=== PATIENT | female | born 1985 | race Caucasian/White ===

== ENCOUNTER 2016-04-19 13:20 | Emergency (ER) | payer MEDICAID ==
[~2016-04-19] VITALS: Ht 152.4 cm; Wt 87.0 kg
[~2016-04-19 13:20] MED LIST: CALC600T5 PO; FERR240T9 PO; IBUP-1542 PO; PRENAT PO
[2016-04-19 13:44] VITALS: Ht 152.4 cm; Wt 87.0 kg
[2016-04-19 16:19] LABS: BASOPHILS % 0.4 % (0.0-2.0); EOSINOPHILS % 0.2 % (0.0-7.0); HEMATOCRIT 38.8 % (37.0-47.0); HEMOGLOBIN 12.9 g/dl (12.0-16.0); LYMPHOCYTES # 2.1 10^3/ul (0.8-2.9); LYMPHOCYTES % 20.3 % (15.0-51.0); MEAN CORPUSCULAR HEMOGLOBIN 29.6 pg (29.0-33.0); MEAN CORPUSCULAR HGB CONC 33.3 g/dl (32.0-37.0); MEAN CORPUSCULAR VOLUME 88.9 fl (82.0-101.0); MEAN PLATELET VOLUME 8.1 fl (7.4-10.4); MONOCYTE # 0.9 10^3/ul (0.3-0.9); MONOCYTES % 8.6 % (0.0-11.0); NEUTROPHIL # 7.4 10^3/ul (1.6-7.5); NEUTROPHILS % 70.5 % (39.0-77.0); PLATELET COUNT 343 10^3/UL (140-440); RED BLOOD COUNT 4.36 10^6/ul (4.20-5.40); RED CELL DISTRIBUTION WIDTH 14.3 % (11.5-14.5); UNCORRECTED WBC 10.5 10^3/ul (4.8-10.8); WHITE BLOOD COUNT 10.5 10^3/ul (4.8-10.8)
[2016-04-19 16:28] LABS: CONDITION 1
--- NOTE | 2016-04-19 17:04 | RADRPT ---
PROCEDURE: US Pelvis. CLINICAL INDICATION: pain, no FHTs TECHNIQUE: Multiple sonographic images of the pelvis were obtained utilizing a transabdominal and endovaginal technique. The images were reviewed on a PACS workstation. COMPARISON: none FINDINGS: There is a small cystic structure within the endometrium measuring 1.1 cm which would correspond to a calculated gestational age of 5 weeks and 5 days. No pole is not yet visualized. There is a yolk sac seen. The ovaries are normal. No abnormal adnexal masses are present. There is normal Doppler flow in the ovaries. The right ovary measures 2.6 x 1.5 x 1.6 cm. The left ovary measures 2.8 x 1.7 x 1.9 cm. No significant free fluid is present within the pelvis. RPTAT: AA IMPRESSION: Possible early intrauterine at 5 weeks and 5 days. Close followup ultrasound and hCG is recommended. .Rivera Sauer MD, MD Date Time Electronically viewed and signed by .Rivera Sauer MD, MD on 04/19/2016 17:04 .S/
[2016-04-19 18:12] LABS: ADD UMIC YES; URINE BILIRUBIN (Dip) NEGATIVE (NEGATIVE); URINE BLOOD (Dip) TRACE (NEGATIVE); URINE COLOR LT. YELLOW (YELLOW); URINE GLUCOSE (Dip) NEGATIVE (NEGATIVE); URINE KETONES (Dip) TRACE (NEGATIVE); URINE LEUKOCYTE ESTERASE (Dip) TRACE (NEGATIVE); URINE NITRITE (Dip) NEGATIVE (NEGATIVE); URINE TOTAL PROTEIN (Dip) NEGATIVE (NEGATIVE); URINE UROBILINOGEN (Dip) 0.2 E.U./dL (0.1-1.0)
[2016-04-19 18:25] LABS: SQUAMOUS EPITHELIAL CELL,UR FEW; URINE RBCS 0-2 /HPF (0)
[2016-04-19 18:53] VITALS: BP 132/78; PULSE 98; RESP 16; TEMP 99.1
--- NOTE | 2016-04-19 19:20 | ERD ---
ER Documentation Chief Complaint Date/Time DATE: 04/19/16 TIME: 19:10 Chief Complaint Pt her for Ultrasound and further evaluation, referred by OBGYN. HPI 30-year-old female with no significant past medical history is a presents to the ED for laboratory testing and ultrasound and was sent here by her [facility] APPRENTICE at the [facility]. Patient was sent here by Imani Finnegan CNM. Patient's last menses was on February 24 2016. Patient had a positive test but no IUP seen on bedside ultrasound. Patient came in results with a sac that was visualized but unable to see fundal border to confirm sac in the uterine cavity. Patient was sent here to rule out ectopic . Denies any vaginal bleeding, vaginal discharge, abdominal pain, pelvic pain, chest pain, shortness of breath, nausea, vomiting, diarrhea, constipation. Patient reports normal bowel movements. ROS All systems reviewed and are negative except as per history of present illness. Medications Home Meds Active Scripts Ibuprofen* (Ibuprofen*) 600 Mg Tab, 600 MG PO Q6, #20 TAB 0 Refills Prov:CHANG BROWN MD 04/20/15 Reported Medications Calcium Carbonate (CALCIUM) 600 Mg Tablet, 600 MG PO, TAB 03/24/15 Ferrous Gluconate (Iron) 1 Tab Tablet, 1 TAB PO, TAB 03/24/15 Multivit/Min/Fol Ac/Iron/Pren* ( S*) 1 Tab Tab, 1 TAB PO DAILY, TAB 03/24/15 Allergies Allergies: Coded Allergies: No Known Allergy (Unverified , 04/16/15) PMhx/Soc Medical and Surgical Hx: pt denies Medical Hx, pt denies Surgical Hx Physical Exam Vitals Vital Signs Date Time Temp Pulse Resp B/P Pulse Ox O2 Delivery O2 Flow Rate FiO2 04/19/16 18:53 99.1 98 16 132/78 99 Room Air 04/19/16 13:44 99.4 108 18 140/81 99 Physical Exam Const: Ziw-bba-whddqizde, well-nourished. In no acute distress. Head: Atraumatic, normocephalic Eyes: Normal Conjunctiva without injection. No purulent discharge. ENT: Normal external ear, nose. Moist oropharynx without tonsillar exudates. Non -erythematous pharynx. Uvula midline. No drooling. No trismus. Neck: No cervical midline tenderness. Full range of motion. No meningismus. No cervical lymphadenopathy. No JVD. Resp: Clear to auscultation bilaterally. No wheezing, rhonchi, rales, or crackles. No accessory muscle use. No retractions. Cardio: Regular rate and rhythm. No murmurs, rubs or gallops. Abd: Soft, nontender, non distended. Normal bowel sounds. No palpable masses. No rebound tenderness. No guarding. Negative McBurney's point. Negative psoas sign. Negative obturator sign. Skin: No petechiae or rashes Back: No midline tenderness. No CVA tenderness. Ext: No cyanosis, or edema. Neur: Awake and alert. Normal gait. Normal coordination. Psych: Normal Mood and Affect Result Diagram: 04/19/16 1600 Results 24 hrs Laboratory Tests Test 04/19/16 16:00 04/19/16 18:00 Basophils # 0.010^3/ul Basophils % 0.4% Beta HCG, Quantitative 10500.0mIU/ml Eosinophils # 0.010^3/ul Eosinophils % 0.2% Hematocrit 38.8% Hemoglobin 12.9g/dl Lymphocytes # 2.110^3/ul Lymphocytes % 20.3% Mean Corpuscular Hemoglobin 29.6pg Mean Corpuscular Hemoglobin Concent 33.3g/dl Mean Corpuscular Volume 88.9fl Mean Platelet Volume 8.1fl Monocytes # 0.910^3/ul Monocytes % 8.6% Neutrophils # 7.410^3/ul Neutrophils % 70.5% Nucleated Red Blood Cells # 0.010^3/ul Nucleated Red Blood Cells % 0.0/100WBC Platelet Count 66517^3/UL Red Blood Count 4.3610^6/ul Red Cell Distribution Width 14.3% White Blood Count 10.510^3/ul Urine Bilirubin NEGATIVE Urine Clarity CLEAR Urine Color LT. YELLOW Urine Glucose NEGATIVE% Urine Hemoglobin TRACE Urine Ketones TRACE Urine Leukocyte Esterase TRACE Urine Microscopic RBC 0-2/HPF Urine Microscopic WBC 0-2/HPF Urine Nitrite NEGATIVE Urine Specific [place] 1.020 Urine Squamous Epithelial Cells FEW Urine Total Protein NEGATIVE Urine Urobilinogen 0.2 E.U./dL Urine pH 6.0 Procedures/MDM This is a 30-year-old female with no significant past medical history is a presents the ED and is here to rule out ectopic . Patient is afebrile and nontoxic-appearing. Patient has normal vital signs. An ultrasound , beta-hCG, CBC, type and RH, UA was ordered to evaluate patient. CBC: No evidence of severe infection or anemia Urine: No elevation in nitrites, leukocyte esterase, hematuria. No evidence of UTI Rh: O positive. No indication for Rhogam at this time. beta Hc PROCEDURE: US Pelvis. CLINICAL INDICATION: pain, no FHTs TECHNIQUE: Multiple sonographic images of the pelvis were obtained utilizing a transabdominal and endovaginal technique. The images were reviewed on a PACS workstation. COMPARISON: none FINDINGS: There is a small cystic structure within the endometrium measuring 1.1 cm which would correspond to a calculated gestational age of 5 weeks and 5 days. No pole is not yet visualized. There is a yolk sac seen. The ovaries are normal. No abnormal adnexal masses are present. There is normal Doppler flow in the ovaries. The right ovary measures 2.6 x 1.5 x 1.6 cm. The left ovary measures 2.8 x 1.7 x 1.9 cm. No significant free fluid is present within the pelvis. RPTAT: AA IMPRESSION: Possible early intrauterine at 5 weeks and 5 days. Close followup ultrasound and hCG is recommended. Low suspicion for symptomatic anemia, ectopic , sepsis, PID, appendicitis, ovarian torsion, tubo-ovarian abscess, surgical abdomen, or other emergent conditions. Patient was educated that there is a risk for threatened . Patient to follow up with WATCHMAKER APPRENTICE in 2 days for further evaluation and treatment. Patient is to return sooner to the ED for any worsening symptoms. Patient's questions were answered. Patient understood and agreed with discharge plan Departure Diagnosis: Primary Impression: Encounter for laboratory test Additional Impression: Encounter for ultrasound Condition: Stable Patient Instructions: : Common Questions Referrals: COMMUNITY CLINICS YOU HAVE RECEIVED A MEDICAL SCREENING EXAM AND THE RESULTS INDICATE THAT YOU DO NOT HAVE A CONDITION THAT REQUIRES URGENT TREATMENT IN THE EMERGENCY DEPARTMENT. FURTHER EVALUATION AND TREATMENT OF YOUR CONDITION CAN WAIT UNTIL YOU ARE SEEN IN YOUR DOCTORS OFFICE WITHIN THE NEXT 1-2 DAYS. IT IS YOUR RESPONSIBILITY TO MAKE AN APPOINTMENT FOR FOLOW-UP CARE. IF YOU HAVE A PRIMARY DOCTOR --you should call your primary doctor and schedule an appointment IF YOU DO NOT HAVE A PRIMARY DOCTOR YOU CAN CALL OUR PHYSICIAN REFERRAL HOTLINE AT IF YOU CAN NOT AFFORD TO SEE A PHYSICIAN YOU CAN CHOSE FROM THE FOLLOWING [facility] CLINICS [facility] [address] [facility] [address] [facility] [place] [phone] [facility] [address] [facility] [address] [facility]. [facility] [address] [facility]. [facility] YOU HAVE RECEIVED A MEDICAL SCREENING EXAM AND THE RESULTS INDICATE THAT YOU DO NOT HAVE A CONDITION THAT REQUIRES URGENT TREATMENT IN THE EMERGENCY DEPARTMENT. FURTHER EVALUATION AND TREATMENT OF YOUR CONDITION CAN WAIT UNTIL YOU ARE SEEN IN YOUR DOCTORS OFFICE WITHIN THE NEXT 1-2 DAYS. IT IS YOUR RESPONSIBILITY TO MAKE AN APPOINTMENT FOR FOLOW-UP CARE. IF YOU HAVE A PRIMARY DOCTOR --you should call your primary doctor and schedule and appointment IF YOU DO NOT HAVE A PRIMARY DOCTOR YOU CAN CALL OUR PHYSICIAN REFERRAL HOTLINE AT . IF YOU CAN NOT AFFORD TO SEE A PHYSICIAN YOU CAN CHOSE FROM THE FOLLOWING [facility]: [facility] [address] [place] [address] [facility] [address] [place] [address] [facility] [address] [place] [address] WATCHMAKER [place] [address] [facility] [address] [place] [address] OFFICE FAX ROHAN MOORE [address] [place], [place] [id number] [facility] [address] [place], [place] [phone] [address] [facility] [address], [address], [place] [address] DR GONZALEZ, JACLYNRO [address], [place] [address] [facility] [address] [place] [address] [address] [facility] [address] [address] VELARDE, JUANA [address], [place] [address] DR LUCIA, SOLO [address] [facility]. [address], [place] [address] DR THOMPSON, [facility] [address] [place], [place] [phone] [facility] Hours: 8:00 am - 5:00 pm Additional Instructions: FOLLOW UP WITH YOUR WATCHMAKER APPRENTICE in 2 days. Return to this facility if you are not improving as expected. TORY ANDERSON PA-C Apr 19, 2016 19:20 TORY ANDERSON PA-C Apr 19, 2016 19:20
== END 2016-04-19 18:54 | disposition home or self-care (01) ==
LOC: FTE 13:20
DX: Z36 Encounter for antenatal screening of mother (principal)
CPT/HCPCS: 36415; 76801; 76817; 81001; 81003; 84702; 85025; 86900; 86901

== ENCOUNTER 2016-05-15 19:02 | Emergency (ER) | payer MEDICAID ==
[~2016-05-15] VITALS: Ht 157.5 cm; Wt 87.0 kg
[2016-05-15 19:25] VITALS: Ht 157.5 cm; Wt 87.0 kg
[2016-05-15 21:14] LABS: BASOPHIL # 0.2 10^3/ul (0.0-0.1); BASOPHILS % 1.1 % (0.0-2.0); EOSINOPHILS # 0.1 10^3/ul (0.0-0.5); HEMOGLOBIN 12.9 g/dl (12.0-16.0); LYMPHOCYTES # 2.8 10^3/ul (0.8-2.9); LYMPHOCYTES % 18.5 % (15.0-51.0); MEAN CORPUSCULAR HEMOGLOBIN 30.2 pg (29.0-33.0); MEAN CORPUSCULAR HGB CONC 33.8 g/dl (32.0-37.0); MEAN CORPUSCULAR VOLUME 89.3 fl (82.0-101.0); MEAN PLATELET VOLUME 8.2 fl (7.4-10.4); MONOCYTE # 0.8 10^3/ul (0.3-0.9); MONOCYTES % 5.5 % (0.0-11.0); NEUTROPHIL # 11.1 10^3/ul (1.6-7.5); NEUTROPHILS % 73.9 % (39.0-77.0); PLATELET COUNT 334 10^3/UL (140-440); RED BLOOD COUNT 4.25 10^6/ul (4.20-5.40); RED CELL DISTRIBUTION WIDTH 14.2 % (11.5-14.5)
[2016-05-15 21:19] LABS: CONDITION 1
[2016-05-15 21:20] LABS: ADD UMIC YES; URINE BILIRUBIN (Dip) NEGATIVE (NEGATIVE); URINE BLOOD (Dip) 3+ (NEGATIVE); URINE GLUCOSE (Dip) NEGATIVE (NEGATIVE); URINE KETONES (Dip) NEGATIVE (NEGATIVE); URINE LEUKOCYTE ESTERASE (Dip) TRACE (NEGATIVE); URINE NITRITE (Dip) NEGATIVE (NEGATIVE); URINE TOTAL PROTEIN (Dip) TRACE (NEGATIVE); URINE UROBILINOGEN (Dip) 0.2 E.U./dL (0.1-1.0)
[2016-05-15 21:50] LABS: URINE COLOR PINK (YELLOW)
[2016-05-15 21:51] LABS: BACTERIA,URINE FEW; URINE RBCS >200 /HPF (0)
[2016-05-15 21:52] LABS: SQUAMOUS EPITHELIAL CELL,UR FEW
--- NOTE | 2016-05-15 22:11 | RADRPT ---
PROCEDURE: US OB. CLINICAL INDICATION: Vaginal bleeding TECHNIQUE: Transabdominal and transvaginal views of the pelvis were obtained. COMPARISON: 04/19/2016 FINDINGS: There is a single intrauterine gestation with a CRL measuring 0.4 cm, corresponding to a gestational age of 6 weeks and 3 days. The heart rate is not seen. There is a hypoechoic fluid collection adjacent to the gestational sac, consistent with a small subc horionic hemorrhage. The right ovary measures 2.1 x 1.8 cm. The left ovary was not visualized. No ovarian or adnexal mass lesion is seen. There is no free fluid. RPTAT: AA IMPRESSION: Single intrauterine with an estimated gestational age of 6 weeks and 3 days, based on ultr asound measurements. The findings may represent demise. Focal area of subchorionic hemorrhage. Close follow-up is recommended. .Rivera Saure MD, Date Time Electronically viewed and signed by .Rivera Sauer MD, on 05/15/2016 22:10 .S/
[2016-05-15] MEDS ORDERED: D-ME473S18 PO (22:29)
[2016-05-15 23:00] VITALS: BP 120/77; PULSE 80; RESP 16; TEMP 98.6
--- NOTE | 2016-05-15 23:27 | ERD ---
ER Documentation Chief Complaint Date/Time DATE: 05/15/16 TIME: 23:25 Chief Complaint 7 WEEKS PREG WITH HEAVY BLEEDING AND ABD PAIN HPI This is a 30-year-old female presents to the ER with vaginal bleeding. Patient is currently 7 weeks A0. Patient denies any urinary frequency or dysuria. She does admit to some lower pelvic pain. Patient also complaining of a cough for the last week and associated back pain with coughing. Patient denies any chest pain or shortness of breath. ROS 12 point review of systems was done, all negative except per HPI. Medications Home Meds Active Scripts Dextromethorphan Hb-Promethazine Hcl (Promethazine DM Syrup) 473 Ml Syrup, 10 ML PO Q6H Y for COUGH, #4 OZ Prov:NICA ZEE 05/15/16 Ibuprofen* (Ibuprofen*) 600 Mg Tab, 600 MG PO Q6, #20 TAB 0 Refills Prov:CHANG BROWN MD 04/20/15 Reported Medications Calcium Carbonate (CALCIUM) 600 Mg Tablet, 600 MG PO, TAB 03/24/15 Ferrous Gluconate (Iron) 1 Tab Tablet, 1 TAB PO, TAB 03/24/15 Multivit/Min/Fol Ac/Iron/Pren* ( S*) 1 Tab Tab, 1 TAB PO DAILY, TAB 03/24/15 Allergies Allergies: Coded Allergies: No Known Allergy (Unverified , 04/16/15) PMhx/Soc Medical and Surgical Hx: pt denies Medical Hx, pt denies Surgical Hx Hx Alcohol Use: No Hx Substance Use: No Hx Tobacco Use: No Physical Exam Vitals Vital Signs Date Time Temp Pulse Resp B/P Pulse Ox O2 Delivery O2 Flow Rate FiO2 05/15/16 19:25 99.1 106 18 133/80 100 Physical Exam GENERAL: The patient is well developed and appropriate for usual state of health , in no apparent distress. HEENT: Atraumatic. Conjunctivae are pink. Pupils equal, round, and reactive to light. Extraocular muscles are grossly intact. Bilateral tympanic membranes are clear with no evidence of erythema, effusion or dulling of the light reflex. The oropharynx is clear with no erythema or exudates. CHEST: Clear to auscultation bilaterally. There are no rales, wheezes or rhonchi. HEART: Regular rate and rhythm. No murmurs, clicks, rubs or gallops. ABDOMEN: Soft, nontender and nondistended. Good bowel sounds. No rebound or guarding. No gross peritonitis. No gross organomegaly or masses. No Alcazar sign or McBurney point tenderness. BACK: No midline or flank tenderness. NEURO: Alert and oriented. Result Diagram: 05/15/162101 Results 24 hrs Laboratory Tests Test 05/15/16 21:02 Basophils # 0.210^3/ul Basophils % 1.1% Beta HCG, Quantitative 44641.0mIU/ml Eosinophils # 0.110^3/ul Eosinophils % 1.0% Hematocrit 38.0% Hemoglobin 12.9g/dl Lymphocytes # 2.810^3/ul Lymphocytes % 18.5% Mean Corpuscular Hemoglobin 30.2pg Mean Corpuscular Hemoglobin Concent 33.8g/dl Mean Corpuscular Volume 89.3fl Mean Platelet Volume 8.2fl Monocytes # 0.810^3/ul Monocytes % 5.5% Neutrophils # 11.110^3/ul Neutrophils % 73.9% Nucleated Red Blood Cells # 0.010^3/ul Nucleated Red Blood Cells % 0.0/100WBC Platelet Count 48648^3/UL Red Blood Count 4.2510^6/ul Red Cell Distribution Width 14.2% Urine Amorphous Urates MODERATE Urine Bacteria FEW Urine Bilirubin NEGATIVE Urine Clarity HAZY Urine Color PINK Urine Glucose NEGATIVE% Urine Hemoglobin 3+ Urine Ketones NEGATIVE Urine Leukocyte Esterase TRACE Urine Microscopic RBC >200/HPF Urine Microscopic WBC 0-2/HPF Urine Nitrite NEGATIVE Urine Specific [place] 1.020 Urine Squamous Epithelial Cells FEW Urine Total Protein TRACE Urine Urobilinogen 0.2 E.U./dL Urine pH 6.5 White Blood Count 15.010^3/ul Procedures/MDM Differential diagnosis: Threatened , missed , incomplete , ectopic , molar , UTI, pyelonephritis. At this time radiologist mentioned that patient may have had demise as there is no heartbeat. Suspicion for ectopic as well as is intrauterine. Patient is hemodynamically stable. Patient also has a upper respiratory infection. Patient will be sent home with promethazine. I discussed the risks versus benefits of using this medication the patient understood. Patient still wishes to use medication. Patient is to follow-up with [facility] and return to ER in 48 hours for repeat blood work and ultrasound. My Medical decision making sure with the patient and her they both understand and agree with plan. Departure Diagnosis: Primary Impression: Upper respiratory infection Additional Impression: Vaginal bleeding in patient at less than 20 weeks ges... Condition: Stable Patient Instructions: Bleeding During Early Additional Instructions: Call your primary care doctor TOMORROW for an appointment during the next 1-2 days.See the doctor sooner or return here if your condition worsens before your appointment time. NICA ZEE May 15, 2016 23:27
== END 2016-05-16 03:44 | disposition home or self-care (01) ==
LOC: FTE 19:02
DX: O99.511 Diseases of the respiratory system complicating pregnancy, first trimester (principal); J06.9 Acute upper respiratory infection, unspecified; Z3A.01 Less than 8 weeks gestation of pregnancy
CPT/HCPCS: 36415; 76801; 76817; 81001; 84702; 85025; 86900; 86901; Z7502; 81003

== ENCOUNTER → 2017-07-10 | Outpatient (CLI) | END | disposition home or self-care (01) ==

== ENCOUNTER 2017-09-18 10:25 | Inpatient (IN) | END 2017-09-21 13:58 | disposition home or self-care (01) | DRG 775 ==